=== PATIENT | male | born 1975 | race African-American/Black ===

== ENCOUNTER 2018-11-10 23:04 | Observation (INO) | payer OTHER ==
[~2018-11-10] VITALS: Ht 186.7 cm; Wt 109.0 kg
[2018-11-11 00:18] LABS: BASO % 0.8 % (0.0-1.0); EOS # 0.1 10^3/uL (0.0-0.50); EOS % 2.9 % (0.0-3.0); HEMATOCRIT 36.4 % (42.0-52.0); HEMOGLOBIN 12.4 g/dl (13.5-17.5); LYMPH % 41.7 % (24.0-44.0); MEAN CORPUSCULAR HEMOGLOBIN 28.1 pg (27.0-33.0); MEAN CORPUSCULAR HGB CONC 34.1 g/dl (32.0-36.5); MEAN CORPUSCULAR VOLUME 82.5 fl (80.0-96.0); MONO # 0.4 10^3/uL (0.0-0.8); MONO % 9.1 % (0.0-5.0); NEUTROPHILS # 2.1 10^3/uL (1.8-7.7); NEUTROPHILS % 45.1 % (36.0-66.0); PLATELET COUNT, AUTOMATED 354 10^3/uL (150-450); RED BLOOD COUNT 4.41 10^6/uL (4.30-6.10); WHITE BLOOD COUNT 4.8 10^3/uL (4.0-10.0)
[2018-11-11 00:28] LABS: INR 1.07
[2018-11-11] MEDS ORDERED: METO1TAB87 PO (00:41)
[2018-11-11] MEDS ORDERED: ELIQ5TAB PO ×2 (00:41→03:50)
[2018-11-11] MEDS ORDERED: HYDR12.55 PO (00:41)
[2018-11-11] MEDS ORDERED: LISI-538 PO ×2 (00:41→03:50)
[2018-11-11] MEDS ORDERED: ASPI81CH33 PO (00:41)
[2018-11-11] MEDS ORDERED: ASPIRIN 81 MG CHEW TABLET PO ONE (00:45)
[2018-11-11] MEDS: NITROGLYCERIN 0.4 MG SUBL TABLET SL PRN ×3 (00:46→00:59)
[2018-11-11 00:47] LABS: PARTIAL THROMBOPLASTIN TIME 30.8 SECONDS (25.4-37.6)
[2018-11-11 00:48] LABS: ALBUMIN 3.2 GM/DL (3.2-5.2); ALT/SGPT 50 U/L (12-78); BILIRUBIN,TOTAL 0.2 MG/DL (0.2-1.0); BLOOD UREA NITROGEN 18 MG/DL (7-18); CALCIUM LEVEL 8.4 MG/DL (8.5-10.1); CARBON DIOXIDE LEVEL 30 MEQ/L (21-32); CHLORIDE LEVEL 107 MEQ/L (98-107); CPK CREATINE PHOSPHOKINASE 149 U/L (39-308); CREATININE FOR GFR 1.02 MG/DL (0.70-1.30); GLOMERULAR FILTRATION RATE > 60.0 (>60); GLUCOSE, FASTING 84 MG/DL (70-100); LIPASE 104 U/L (73-393); MB/CK RELATIVE INDEX 0.87 (< OR =4); POTASSIUM SERUM 3.7 MEQ/L (3.5-5.1); SODIUM LEVEL 142 MEQ/L (136-145); TOTAL PROTEIN 7.3 GM/DL (6.4-8.2); TROPONIN I < 0.02 NG/ML (< 0.10)
[2018-11-11] MEDS ORDERED: hydrALAZINE INJ 20 MG/ML VIAL IV STA ×2 (01:13→02:51)
[2018-11-11] MEDS ORDERED: ISOVUE-370 76% 100ML VIAL (Q9967) As Ordered ONE (01:19)
--- NOTE | 2018-11-11 02:48 | REPVR ---
EXAM: CT Angiography Chest With Contrast EXAM DATE/TIME: 11/11/2018 1:54 AM CLINICAL HISTORY: 43 years old, male; Chest pain; Type not specified TECHNIQUE: Imaging protocol: Axial computed tomographic angiography images of the chest with intravenous contrast using CT angiography protocol. Coronal and sagittal reformatted images were created and reviewed. 3D rendering: MIP reconstructed images were created and reviewed. Radiation optimization: All CT scans at this facility use at least one of these dose optimization techniques: automated exposure control; mA and/or kV adjustment per patient size (includes targeted exams where dose is matched to clinical indication); or iterative reconstruction. Contrast material: ISOVUE 370; Contrast volume: 100 ml; Contrast route: IV COMPARISON: CR PORTABLE CHEST X-RAY 11/10/2018 11:51 PM FINDINGS: No focal pulmonary artery filling defect to suggest acute pulmonary embolus. No thoracic aortic aneurysm or dissection. Small, nonspecific mediastinal nodes are present. Miniscule dependent pleural effusions are present with adjacent atelectasis. Pulmonary vascular/interstitial pattern does not suggest active pulmonary edema. No pneumothorax. No suspicious lung mass or air space process. No central endobronchial lesion. Limited visualization of upper abdomen shows no concerning finding. Bony structures show no acute fracture or destructive process. IMPRESSION: No evidence of acute pulmonary embolus. Miniscule nonspecific dependent pleural effusions. Unknown source.. Electronically signed by: Emeka Hagan On 11/11/2018 02:47:55 AM
--- NOTE | 2018-11-11 02:53 | REPVR ---
EXAM: XR Chest, 1 View EXAM DATE/TIME: 11/11/2018 2:04 AM CLINICAL HISTORY: 43 years old, male; Chest pain; Type not specified TECHNIQUE: Imaging protocol: XR of the chest, 1 view. COMPARISON: No relevant prior studies available. FINDINGS: Lungs: Degree of lung inflation is normal. No evidence of pulmonary edema. No focal consolidation or parenchymal lung mass. Pleural space: No pleural effusion or pneumothorax. Heart/Mediastinum: Cardiac silhouette appears normal. No adenopathy or hilar mass. Bones/joints: Osseous structures show no concerning abnormality. IMPRESSION: No acute or focal cardiopulmonary process. Electronically signed by: Emeka Hagan On 11/11/2018 02:53:11 AM
[2018-11-11] MEDS ORDERED: ACETAMINOPHEN TAB 650MG DOSE (2X325MG) PO PRN (03:45)
[2018-11-11] MEDS ORDERED: IBUP1TAB6 PO (03:50)
[2018-11-11] MEDS ORDERED: HYDR12CA PO (03:50)
[2018-11-11] MEDS ORDERED: ASPI-161 PO (03:50)
[2018-11-11] MEDS ORDERED: METO25TA4 PO (03:50)
--- NOTE | 2018-11-11 04:34 | HPEPDOC ---
General Date of Admission 11/10/18 Date of Service: Nov 11, 2018 Other Providers Primary care provider: [facility] Attending Physician: IVANNA LEO MD Chief Complaint The patient is a 43-year-old male admitted with a reason for visit of Chest Pain. Source: Patient, Old records Exam Limitations: No limitations Timing/Duration: Week(s), Getting worse Associated Symptoms: Chest Pain History of Present Illness Mr. Forbes is a 43-year-old Black male who presents to [facility]'s Emergency Department with chest pain. He is accompanied by two long-term guards. Patient states that he has been having worsening left sided chest pain and back pain that he is unable to ascertain if the pains are related or isolated. He states that the pain has been ongoing since he was admitted at [facility] in September for new onset atrial fibrillation. At that time he was experiencing shortness of breath with chest pain. He underwent a cardioversion at that time and during the cardioversion flailed against the stretcher. He was started on Metoprolol and Lovenox and eventually transitioned to Eliquis at time of discharge. He states that during that hospitalization he received a medication that caused his tongue to develop sores and his tongue and lower lip swelled. He cannot recall the name of the medication. Patient states that ever since his admission to [facility] he has been experiencing this sharp anter ior left-sided chest pain. He states that he pain is worse when he sneezes, coughs, or leans forward. Besides what is listed above, he has no other positive symptoms. Emergency Department evaluation reveals significantly elevated blood pressure of 183/109. He is saturating at 98% on room air. Laboratory evaluation is unremarkable. Imaging is unremarkable. Hospitalist service was consulted and patient was admitted for further medical management. Home Medications Scheduled Apixaban (Eliquis) 5 Mg Tablet, 5 MG PO BID, (Reported) Aspirin (Aspirin EC) 81 Mg Tablet.dr, 81 MG PO DAILY, (Reported) Hydrochlorothiazide (Hydrochlorothiazide) 12.5 Mg Capsule, 12.5 MG PO DAILY, (Reported) Lisinopril (Lisinopril) 20 Mg Tablet, 20 MG PO DAILY, (Reported) Metoprolol Tartrate (Metoprolol Tartrate) 25 Mg Tablet, 25 MG PO BID, (Reported) Scheduled PRN Ibuprofen (Ibuprofen) 600 Mg Tablet, 600 MG PO TID PRN for PAIN, (Reported) Allergies Coded Allergies: WOOL (FABRIC) (Verified Allergy, Unknown, 11/11/18) amiodarone (Verified Allergy, Unknown, 11/11/18) diltiazem (Verified Allergy, Unknown, " MUCOUSA ULCERATIONS", 11/11/18) lactose (Verified Allergy, Unknown, 11/11/18) soy (Verified Allergy, Unknown, 11/11/18) Past Medical History Medical History 1. New onset atrial fibrillation s/p cardioversion 2. HTN Surgical History None Family History Father: , 79, unspecified cancer Mother: , 74, lung cancer Siblings - 16 total siblings - unknown medical conditions Social History * Smoker: Denies Alcohol: Denies Drugs: marijuana Patient is currently incarcerated at [facility]. He has been in this facility since 07/2018. Prior to that, he was in the [facility] since 02/2018. Total, he has been incarcerated for 10 months. He denies tobacco use, EtOH. He states that he smokes marijuana when he can. He has 6 children - 1 girl and 5 boys. They are all healthy. He is [id number] once released from long-term. He was raised in foster care. A-FIB/CHADSVASC A-FIB History Current/History of A-Fib/PAF?: Yes Current PO Anticoag Therapy: Yes Age/Risk Factor Scoring CHADSVASC: CHADSVASC Response (Comments) Value Age Risk Factor Age < 65 years old 0 Gender Risk Factor Male 0 Hx of CHF No 0 Hx of HTN Yes 1 Hx of Stroke/TIA/or VTE No 0 Hx of Diabetes No 0 Hx of Vascular Disease No 0 Total 1 Treatment Treatment ordered: Apixaban Review of Systems Constitutional: Denies: Chills, Fever, Night Sweats, Weakness Eyes: Denies: Vision change, Conjunctivae inflammation, Eyelid inflammation, Redness ENT: Denies: Head Aches, Dysphagia, Sinus Congestion, Post Nasal Drip, Sore Throat, Epistaxis Skin: Denies: Rash, Lesions Pulmonary: Reports: Pleuritic Chest Pain; Denies: Dyspnea, Cough Cardiovascular: Reports: Chest Pain (pleuritic, left sided, worse with cough, sneeze, leaning forward), Edema (B/L ankle); Denies: Palpitations, Orthopnea, Paroxysmal Noc. Dyspnea, Lt Headedness Gastrointestinal: Denies: Nausea, Vomiting, Abdominal Pain, Diarrhea, Constipation, Melena, Hematochezia Genitourinary: Denies: Dysuria, Frequency, Incontinence, Hematuria, Retention Hematologic: Denies: Bruising Musculoskeletal: Reports: Back Pain; Denies: Neck Pain, Joint Pain, Muscle Pain Neurological: Denies: Weakness, Numbness Physical Examination General Exam: Positive: Alert, Cooperative, No Acute Distress Eye Exam: Positive: PERRLA, EOMI, Other Eye Symptoms (no pain with palpation of closed upper eyelids); Negative: Conjunctiva & lids normal (injected bilaterally), Sclera icteric, Ptosis ENT Exam: Positive: Atraumatic, Mucous membr. moist/pink, Pharynx Normal, Tongue Midline, Nares Patent; Negative: Pharyngeal Edema Neck Exam: Positive: Supple, +2 carotid pulse wo bruit; Negative: JVD, thyromegaly, Lymphadenopathy Chest Exam: Positive: Clear to auscultation, Rales (B/L bases), Diminished (B/L bases); Negative: Rhonchi, Wheezing Heart Exam: Positive: Rate Normal, Regular Rhythm, Normal S1, Normal S2; Negative: Gallops, Murmurs, Rubs Telemetry: Positive: Sinus Abdomen Exam: Positive: Normal bowel sounds, Soft; Negative: Tenderness, Hepatospenomegaly, Mass, Hernia Extremity Exam: Positive: Normal pulses; Negative: Clubbing, Cyanosis, Edema, Tenderness, Swelling Skin Exam: Positive: Other skin issue (multiple tattoos); Negative: Rash, Lesion Neuro Exam: Positive: Normal Speech, Cranial Nerves 3-12 NL Psych Exam: Positive: Oriented x 3 Other physical findings 1. Portable chesst x-ray - No acute or focal cardiopulmonary process. 2. CT chest angiogram - No evidence of acute pulmonary embolus. Miniscule nonspecific dependent pleural effusions. Unknown source. Vital Signs Vital Signs Date Time Temp Pulse Resp B/P (MAP) Pulse Ox O2 Delivery O2 Flow Rate FiO2 11/11/18 03:51 Nasal Cannula 2.0 11/11/18 03:34 84 96 11/11/18 03:30 168/85 (112) 11/11/18 00:05 98.7 20 Height (in): 73 Weight (kg): 109 BMI (kg): 31.7 Laboratory Data Labs 24H Laboratory Tests 2 11/11/18 00:06: Immature Granulocyte % (Auto) 0.4, White Blood Count 4.8, Red Blood Count 4.41, Hemoglobin 12.4L, Hematocrit 36.4L, Mean Corpuscular Volume 82.5, Mean Corpuscular Hemoglobin 28.1, Mean Corpuscular Hemoglobin Concent 34.1, Red Cell Distribution Width 12.8, Platelet Count 354, Neutrophils (%) (Auto) 45.1, Lymphocytes (%) (Auto) 41.7, Monocytes (%) (Auto) 9.1H, Eosinophils (%) (Auto) 2.9, Basophils (%) (Auto) 0.8, Neutrophils # (Auto) 2.1, Lymphocytes # (Auto) 2.0, Monocytes # (Auto) 0.4, Eosinophils # (Auto) 0.1, Basophils # (Auto) 0.0, Nucleated Red Blood Cells % (auto) 0.0, Prothrombin Time 14.0, Prothromb Time International Ratio 1.07, Activated Partial Thromboplast Time 30.8, Anion Gap 5L, Glomerular Filtration Rate > 60.0, Blood Urea Nitrogen 18, Creatinine 1.02, Sodium Level 142, Potassium Level 3.7, Chloride Level 107, Carbon Dioxide Level 30, Calcium Level 8.4L, Aspartate Amino Transf (AST/SGOT) 22, Alanine Aminotransferase (ALT/SGPT) 50, Total Creatine Kinase 149, Alkaline Phosphatase 130H, Total Bilirubin 0.2, Total Protein 7.3, Albumin 3.2, Creatine Kinase MB 1.0, Creatine Kinase MB Relative Index 0.87, Troponin I < 0.02, Albumin/Globulin Ratio 0.78L, Lipase 104 CBC/BMP Laboratory Tests 11/11/18 00:06 Red Blood Count 4.41, Mean Corpuscular Volume 82.5, Mean Corpuscular Hemoglobin 28.1, Mean Corpuscular Hemoglobin Concent 34.1, Red Cell Distribution Width 12.8, Neutrophils (%) (Auto) 45.1, Lymphocytes (%) (Auto) 41.7, Monocytes (%) (Auto) 9.1 H, Eosinophils (%) (Auto) 2.9, Basophils (%) (Auto) 0.8, Neutrophils # (Auto) 2.1, Lymphocytes # (Auto) 2.0, Monocytes # (Auto) 0.4, Eosinophils # (Auto) 0.1, Basophils # (Auto) 0.0, Calcium Level 8.4 L, Aspartate Amino Transf (AST/SGOT) 22, Alanine Aminotransferase (ALT/SGPT) 50, Total Creatine Kinase 149, Alkaline Phosphatase 130 H, Total Bilirubin 0.2, Total Protein 7.3, Albumin 3.2 Plan / VTE VTE Prophylaxis Ordered?: Yes (Eliquis 5mg PO BID, TEDs) Plan Plan 1. Hypertensive urgency Hydralazine 10mg IV Q8H Continue Lisinopril, HCTZ Telemetry monitoring Uncertain of echocardiography status --> consider obtaining records from [place] [facility] screen 2. Atypical chest pain Diclofenac patch, Tylenol Nitroglycerin Telemetry monitoring Trending cardiac markers 3. New onset atrial fibrillation s/p cardioversion Continue Eliquis, Metoprolol, ASA Consider obtaining records from [place] for echocardiography status Disposition Admit: PCU Anticipated hospitalization: Observation Diet: Continue Current (2g sodium) Activity: Continue Current (activity as tolerated) Medications: Change to IV (Hydralazine 10mg IV Q8H) Respiratory: Taper Therapy Diagnostics: Check Labs, Repeat Labs in AM Anticipated Discharge: Home GME ATTESTATION GME ATTESTATION My faculty preceptor for this patient encounter was physically present during the encounter and was fully available. All aspects of the patient interview, examination, medical decision making process, and medical care plan development were reviewed and approved by the faculty preceptor. The faculty preceptor is aware and concurs with the plan as stated in the body of this note and will attest to such by his/her cosignature. ATTENDING NOTE ATTENDING ATTESTATION: I performed a history and physical examination of the patient and discuss the management with the resident/SHIPPING AND RECEIVING COORDINATOR. I reviewed the resident's note and agree with the documented findings and plan of care. SEFERINO RODRIGUEZ DO Nov 11, 2018 04:34 IVANNA LEO MD Nov 12, 2018 00:27
[2018-11-11] MEDS ORDERED: DICLOFENAC EPOLAMINE 1.3 % PATCH TOP SCH (06:00)
[2018-11-11 07:58] LABS: HEMATOCRIT 37.2 % (42.0-52.0); MEAN CORPUSCULAR HGB CONC 34.9 g/dl (32.0-36.5); MEAN CORPUSCULAR VOLUME 82.9 fl (80.0-96.0); PLATELET COUNT, AUTOMATED 348 10^3/uL (150-450); RED BLOOD COUNT 4.49 10^6/uL (4.30-6.10); WHITE BLOOD COUNT 5.4 10^3/uL (4.0-10.0)
[2018-11-11 08:05] LABS: BLOOD UREA NITROGEN 15 MG/DL (7-18); CALCIUM LEVEL 8.7 MG/DL (8.5-10.1); CARBON DIOXIDE LEVEL 28 MEQ/L (21-32); CHLORIDE LEVEL 107 MEQ/L (98-107); CREATININE FOR GFR 0.94 MG/DL (0.70-1.30); GLOMERULAR FILTRATION RATE > 60.0 (>60); GLUCOSE, FASTING 106 MG/DL (70-100); POTASSIUM SERUM 3.3 MEQ/L (3.5-5.1); SODIUM LEVEL 141 MEQ/L (136-145)
[2018-11-11 08:09] LABS: CK-MB VALUE MASS < 1.0 NG/ML (<3.6); CPK CREATINE PHOSPHOKINASE 123 U/L (39-308); MB/CK RELATIVE INDEX 0.81 (< OR =4); TROPONIN I < 0.02 NG/ML (< 0.10)
[2018-11-11] MEDS ORDERED: LIDOCAINE 5% (LIDODERM) PATCH TD SCH ×2 (09:00→21:00)
[2018-11-11] MEDS ORDERED: METOPROLOL TART 25 MG TABLET PO SCH (09:00)
[2018-11-11] MEDS: hydroCHLOROthiazide 12.5 MG CAPSULE PO SCH (09:45)
[2018-11-11] MEDS: ASPIRIN 81 MG ENTERIC TAB PO SCH (09:45)
[2018-11-11] MEDS: APIXABAN 5 MG TAB (ELIQUIS) PO SCH ×2 (09:45→21:32)
[2018-11-11] MEDS: LISINOPRIL 20 MG TAB PO SCH (09:46)
[2018-11-11 12:00] LABS: AMPHETAMINES LEVEL URINE NEGATIVE (NEGATIVE); BARBITURATES URINE NEGATIVE (NEGATIVE); BENZODIAZEPINES URINE NEGATIVE (NEGATIVE); CANNABINOIDS URINE NEGATIVE (NEGATIVE); COCAINE METABOLITE URINE NEGATIVE (NEGATIVE); METHADONE URINE NEGATIVE (NEGATIVE); OPIATES URINE NEGATIVE (NEGATIVE); PHENCYCLIDINE URINE NEGATIVE (NEGATIVE)
[2018-11-11] MEDS ORDERED: hydrALAZINE INJ 20 MG/ML VIAL IV SCH (12:00)
[2018-11-11] MEDS: POTASSIUM CHLORIDE 10 MEQ SR TABLET PO SCH (15:49)
[2018-11-11 16:24] LABS: CK-MB VALUE MASS < 1.0 NG/ML (<3.6); CPK CREATINE PHOSPHOKINASE 133 U/L (39-308); MB/CK RELATIVE INDEX 0.75 (< OR =4); TROPONIN I < 0.02 NG/ML (< 0.10)
[2018-11-11 16:39] VITALS: BP 155/95
[2018-11-11] MEDS ORDERED: PERCOCET 5MG/325MG TAB PO PRN (17:45)
[2018-11-11] MEDS ORDERED: GI COCKTAIL 50ML BTL(HYOSCYAMINE/MAALOX/LIDOCAINE VISCOUS)(1:3:1) PO ONE (18:30)
--- NOTE | 2018-11-11 18:34 | IPNPDOC ---
Text Note Date of Service The patient was seen on 11/11/18. NOTE S: patient here for chest pain and HTN urgency. Metoprolol increased with imp roved BP. allergy to CCB. NO N, no V. Chest pain is sharp, burning located along left anterior to lateral rib up to posterior scapula. O: VItals as below General: pleasant, NAD AAOx3 HRRR LCTA Musculoskeletal; point tenderness along T8 anterior/laterally and midline posterior scapular border. no rash A/P: HTN urgency - improved. continue with increased dose of metoprolol Atypical chest pain - non cardiac. will d/c diclofenac patch because no improvement and on eliquis. trial of lidoderm and GI cocktail . Pain may be from gastritis given ibuprofen and eliquis OR musculoskeletal - strain rib. doubt shingles as no current rash along dermatome pattern. If no improvement with either treatment, consider gabapentin atrial fibrillation s/p cardioversion Continue Eliquis, Metoprolol, ASA Records from [facility] for echocardiography status patient should not be on NSAIDS with eliquis Anticipate D/C tomorrow if BP improved. VS,Fishbone, I+O VS, Fishbone, I+O Laboratory Tests 11/11/18 00:06 Red Blood Count 4.41, Mean Corpuscular Volume 82.5, Mean Corpuscular Hemoglobin 28.1, Mean Corpuscular Hemoglobin Concent 34.1, Red Cell Distribution Width 12.8, Neutrophils (%) (Auto) 45.1, Lymphocytes (%) (Auto) 41.7, Monocytes (%) (Auto) 9.1 H, Eosinophils (%) (Auto) 2.9, Basophils (%) (Auto) 0.8, Neutrophils # (Auto) 2.1, Lymphocytes # (Auto) 2.0, Monocytes # (Auto) 0.4, Eosinophils # (Auto) 0.1, Basophils # (Auto) 0.0, Calcium Level 8.4 L, Aspartate Amino Transf (AST/SGOT) 22, Alanine Aminotransferase (ALT/SGPT) 50, Total Creatine Kinase 149, Alkaline Phosphatase 130 H, Total Bilirubin 0.2, Total Protein 7.3, Albumin 3.2 11/11/18 07:28 Red Blood Count 4.49, Mean Corpuscular Volume 82.9, Mean Corpuscular Hemoglobin 29.0, Mean Corpuscular Hemoglobin Concent 34.9, Red Cell Distribution Width 12.8, Calcium Level 8.7 Vital Signs Date Time Temp Pulse Resp B/P (MAP) Pulse Ox O2 Delivery O2 Flow Rate FiO2 11/11/18 16:39 98.7 80 17 155/95 (115) 98 2.0 11/11/18 13:00 Room Air SOPHIA TINEO DO Nov 11, 2018 18:34
[2018-11-11 20:00] VITALS: BP 164/94
[2018-11-11] MEDS ORDERED: **NOTE PATIENT COMMENT** MISC XX SCH (21:00)
[2018-11-11] MEDS: METOPROLOL TART 50 MG TAB PO SCH (21:33)
[2018-11-12] VITALS: BP 158/92
[2018-11-12] MEDS ORDERED: CYCLOBENZAPRINE 5MG TABLET PO PRN
[2018-11-12] MEDS ORDERED: ACETAMINOPH W/CODEINE #3 TAB UD PO PRN
[2018-11-12 04:30] VITALS: BP 190/120
[2018-11-12] MEDS ORDERED: hydrALAZINE INJ 20 MG/ML VIAL IV STA (04:37)
[2018-11-12] MEDS ORDERED: PANTOPRAZOLE 40MG TAB (PROTONIX) PO SCH (04:44)
[2018-11-12 06:00] VITALS: BP 168/104
[2018-11-12 07:56] VITALS: BP 144/82
[2018-11-12 07:58] LABS: HEMATOCRIT 40.4 % (42.0-52.0); HEMOGLOBIN 13.8 g/dl (13.5-17.5); MEAN CORPUSCULAR HEMOGLOBIN 27.8 pg (27.0-33.0); MEAN CORPUSCULAR HGB CONC 34.2 g/dl (32.0-36.5); MEAN CORPUSCULAR VOLUME 81.5 fl (80.0-96.0); PLATELET COUNT, AUTOMATED 389 10^3/uL (150-450); RED BLOOD COUNT 4.96 10^6/uL (4.30-6.10)
[2018-11-12 08:19] LABS: BLOOD UREA NITROGEN 11 MG/DL (7-18); CALCIUM LEVEL 9.2 MG/DL (8.5-10.1); CARBON DIOXIDE LEVEL 29 MEQ/L (21-32); CHLORIDE LEVEL 106 MEQ/L (98-107); CREATININE FOR GFR 1.06 MG/DL (0.70-1.30); GLOMERULAR FILTRATION RATE > 60.0 (>60); GLUCOSE, FASTING 90 MG/DL (70-100); POTASSIUM SERUM 3.7 MEQ/L (3.5-5.1); SODIUM LEVEL 140 MEQ/L (136-145)
[2018-11-12] MEDS ORDERED: KLOR10TA76 PO (08:25)
[2018-11-12] MEDS ORDERED: LOPR1TAB6 PO (08:25)
[2018-11-12] MEDS ORDERED: CYCL5TAB PO (08:25)
--- NOTE | 2018-11-12 08:29 | ECGEPIP ---
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
--- NOTE | 2018-11-12 08:48 | DS.PDOC ---
Discharge Summary General Date of Admission Nov 11, 2018 at 18:23 Date of Discharge 11/12/18 Attending Physician: SOPHIA TINEO DO Discharge Summary PROCEDURES PERFORMED DURING STAY:none ADMITTING DIAGNOSES: 1. Hypertensive urgency 2. Atypical chest pain 3. history of New onset atrial fibrillation s/p cardioversion DISCHARGE DIAGNOSES: HTN urgency - Atypical chest pain - non cardiac. Probable musculoskeletal atrial fibrillation s/p cardioversion prior to admission COMPLICATIONS/CHIEF COMPLAINT: Hypertensive Urgency. HISTORY OF PRESENT ILLNESS: Mr. Forbes is a 43-year-old Black male who presents to [facility]'s Emergency Department with chest pain. He is accompanied by two group home guards. Patient states that he has been having worsening left sided chest pain and back pain that he is unable to ascertain if the pains are related or isolated. He states that the pain has been ongoing since he was admitted at [facility] in September for new onset atrial fibrillation. See H&P for details HOSPITAL COURSE: patient admitted. blood pressure medication adjusted (metoprolol increased) with improved BP. Patient continued to have chest wall and scapula pain - no relief with lidoderm patch, flexeril, GI cocktail or diclofenac patch. Because he is on eliquis - he SHOULD NOT TAKE ORAL NSAIDS due to increase risk of bleeding and gastritis. He had negative serial troponin. It was determined CP was non cardiac in etiology. patient is being discharged in stable condition. DISCHARGE MEDICATIONS: Please see below. ALLERGIES: Please see below. PHYSICAL EXAMINATION ON DISCHARGE: VITAL SIGNS: Please see below. GENERAL: pleasant, NAD, AAOx3 CARDIOVASCULAR EXAMINATION:RRR no murmur RESPIRATORY EXAMINATION: LCTA no W/R/R LABORATORY DATA: Please see below. PROGNOSIS: good ACTIVITY: as tolerated DIET: low salt DISCHARGE PLAN: discharge to correctional facility DISCHARGE INSTRUCTIONS: 1. symptomatic care of chest wall pain 2. NO NSAIDS while on eliquis 3. increase metoprolol to 50mg BID and continue all other cardiac meds 4. follow up with PCP in 1week to recheck BP DISCHARGE CONDITION: stable TIME SPENT ON DISCHARGE: 20 minutes. Vital Signs/I&Os Vital Signs Date Time Temp Pulse Resp B/P (MAP) Pulse Ox O2 Delivery O2 Flow Rate FiO2 11/12/18 07:56 98.5 76 20 144/82 (102) 97 11/11/18 16:39 2.0 11/11/18 13:00 Room Air I&O- Last 24 Hours up to 6 AM 11/12/18 06:00 Intake Total 720 ml Output Total 1275 ml Balance -555 ml Laboratory Data Labs 24H Laboratory Tests 2 11/11/18 11:23: Urine Amphetamines Screen NEGATIVE, Urine Benzodiazepines Screen NEGATIVE, Urine Opiates Screen NEGATIVE, Urine Methadone Screen NEGATIVE, Urine Barbiturates Screen NEGATIVE, Urine Phencyclidine Screen NEGATIVE, Urine Cocaine Metabolite Screen NEGATIVE, Urine Cannabinoids Screen NEGATIVE 11/11/18 15:55: Total Creatine Kinase 133, Creatine Kinase MB < 1.0, Creatine Kinase MB Relative Index 0.75, Troponin I < 0.02 11/12/18 07:27: Nucleated Red Blood Cells % (auto) 0.0, Anion Gap 5L, Glomerular Filtration Rate > 60.0, Blood Urea Nitrogen 11, Creatinine 1.06, Sodium Level 140, Potassium Level 3.7, Chloride Level 106, Carbon Dioxide Level 29, Calcium Level 9.2 CBC/BMP Laboratory Tests 11/12/18 07:27 Red Blood Count 4.96, Mean Corpuscular Volume 81.5, Mean Corpuscular Hemoglobin 27.8, Mean Corpuscular Hemoglobin Concent 34.2, Red Cell Distribution Width 13.1, Calcium Level 9.2 Item Value Date Time Troponin I < 0.02 NG/ML 11/11/185 Troponin I < 0.02 NG/ML 11/11/18727 Lipase 104 U/L 11/11/185 Albumin 3.2 GM/DL 11/11/185 Aspartate Amino Transf (AST/SGOT) 22 U/L 11/11/185 Alanine Aminotransferase (ALT/SGPT) 50 U/L 11/11/185 Potassium Level 3.7 MEQ/L 11/11/185 Potassium Level 3.3 MEQ/L L 11/11/18727 Potassium Level 3.7 MEQ/L 11/12/18726 Discharge Medications Scheduled Apixaban (Eliquis) 5 Mg Tablet, 5 MG PO BID, (Reported) Aspirin (Aspirin EC) 81 Mg Tablet.dr, 81 MG PO DAILY, (Reported) Hydrochlorothiazide (Hydrochlorothiazide) 12.5 Mg Capsule, 12.5 MG PO DAILY, (Reported) Lisinopril (Lisinopril) 20 Mg Tablet, 20 MG PO DAILY, (Reported) Metoprolol Tartrate (Lopressor) 50 Mg Tablet, 50 MG PO BID Potassium Chloride (Klor-Con M10) 10 Meq Tab.er.prt, 20 MEQ PO DAILY Scheduled PRN Cyclobenzaprine HCl (Cyclobenzaprine HCl) 5 Mg Tablet, 5 MG PO Q8HP PRN for MSK PAIN Allergies Coded Allergies: WOOL (FABRIC) (Verified Allergy, Unknown, 11/11/18) amiodarone (Verified Allergy, Unknown, 11/11/18) diltiazem (Verified Allergy, Unknown, " MUCOUSA ULCERATIONS", 11/11/18) lactose (Verified Allergy, Unknown, 11/11/18) soy (Verified Allergy, Unknown, 11/11/18) SOPHIA TINEO DO Nov 12, 2018 08:48
[2018-11-12] MEDS ORDERED: **NOTE PATIENT COMMENT** MISC XX SCH (09:00)
[2018-11-12] MEDS ORDERED: LIDOCAINE 5% (LIDODERM) PATCH TD SCH (09:00)
[2018-11-12] MEDS: APIXABAN 5 MG TAB (ELIQUIS) PO SCH (09:06)
[2018-11-12] MEDS: ASPIRIN 81 MG ENTERIC TAB PO SCH (09:06)
[2018-11-12] MEDS: hydroCHLOROthiazide 12.5 MG CAPSULE PO SCH (09:06)
[2018-11-12] MEDS: POTASSIUM CHLORIDE 10 MEQ SR TABLET PO SCH (09:07)
[2018-11-12] MEDS: METOPROLOL TART 50 MG TAB PO SCH (09:07)
[2018-11-12 09:08] VITALS: BP 144/82
[2018-11-12] MEDS: LISINOPRIL 20 MG TAB PO SCH (09:08)
== END 2018-11-12 13:00 | disposition other institution (70) ==
LOC: M ED 23:04 → M ED INP 23:05 → INTOOBSV 11-11 18:23 → OBSVTOIN 11-11 18:23
PROVIDERS: ADMIT Student in an Organized Health Care Education/Training Program; ATTEND Student in an Organized Health Care Education/Training Program
DX: I16.0 Hypertensive urgency (principal); R07.89 Other chest pain; I48.91 Unspecified atrial fibrillation; Z79.01 Long term (current) use of anticoagulants; Z79.899 Other long term (current) drug therapy; Z79.82 Long term (current) use of aspirin; Z88.8 Allergy status to other drugs, medicaments and biological substances
CPT/HCPCS: 36415; 71045; 71275; 80053; 80307; 82550; 82553; 83690; 84484; 85025; 85027; 85610; 85730; 93005; 93041; 94760; 96374; 96376; 99285; Q9967